=== PATIENT | male | born 1965 | race Caucasian/White ===

== ENCOUNTER 2018-04-21 18:36 | Inpatient (IN) | payer BC ==
[~2018-04-21] VITALS: Ht 175.3 cm; Wt 88.9 kg
--- NOTE | ~2018-04-21 | PROC ---
[address] [address] PROCEDURE REPORT Name: HE DUGGAN Room: [address] IN .R.#: [id number] Admission: 04/21/18 Attend Phys: Dominique Quezada Discharge: 04/24/18 Date of : 67 Report #: [id number] THIS REPORT FOR: //name// For GI report, please see the Provation report in Per[employer] 7 content. By: [id number] Records Staff PASTOR /TREY
[~2018-04-21 18:36] MED LIST: ANDRODERM IM; ANDRODERM1 EAC1; ANTIBIOTIC; BACTRIM; BUDESONIDE; COUMADIN 5 MG TA5 M1; DICLOXACILLIN250 M1 PO; ENTOCORT EC3 MG PO; FLEXERIL PO; IBUPROFEN 600600 M1 PO; OMEPRAZOLE20 MG PO; OMNICEF PO; PREDNISONE 20 M20 MG PO; PROTONIX40 MG PO; TESTOSTERONE IM; VICODIN 5-5001 EACH PO
[2018-04-21 18:57] VITALS: BP 155/107
[2018-04-21] MEDS ORDERED: GABAPENTIN 100100 MG PO (19:02)
[2018-04-21] MEDS ORDERED: LIPITOR 20 MG T20 M1 PO (19:03)
[2018-04-21] MEDS ORDERED: TESTONE CI200 MG/1 M IM (19:03)
[2018-04-21] MEDS ORDERED: ZOLOFT 50 MG TA50 MG PO (19:03)
[2018-04-21 19:46] LABS: HEMATOCRIT 58.3 % (42.0-52.0); HEMOGLOBIN 18.2 gm/dL (14.0-18.0); MCH 23.6 pg (26.0-34.0); MCHC 31.3 g/dL (28.0-37.0); MCV 75.6 fL (80.0-100.0); MPV 8.6 fl. (7.2-11.1); NUCLEATED RBCS 0 /100WBC; PLATELET COUNT* 232 thou/uL (150-400); RBC 7.71 mil/uL (4.50-6.00); RDW-CV 22.2 % (10.5-14.5); WBC 20.8 thou/uL (4.0-11.0)
[2018-04-21 19:54] LABS: CALCIUM 8.7 mg/dL (8.5-10.1); POTASSIUM 3.4 mmol/L (3.5-5.1)
[2018-04-21 19:58] LABS: ALBUMIN 3.5 g/dL (3.4-5.0); TOTAL BILIRUBIN 0.8 mg/dL (<0.1-1.0); TOTAL PROTEIN 7.3 g/dL (6.4-8.2)
[2018-04-21 20:54] LABS: ABSOLUTE EOSINOPHILS 0.8 thou/uL (0.0-0.7); ABSOLUTE LYMPHOCYTES 2.3 thou/uL (0.8-5.3); ABSOLUTE MONOCYTES 1.2 thou/uL (0.0-1.2); ABSOLUTE NEUTROPHILS 16.4 thou/uL (1.6-8.1)
[2018-04-21 20:55] LABS: ANISOCYTOSIS 2+
[2018-04-21 20:56] LABS: PLATELET ESTIMATE ADEQUATE
[2018-04-21 20:57] LABS: LARGE PLATELETS OCCASIONAL
[2018-04-21 21:00] LABS: OVALOCYTES Occasional
[2018-04-21 21:31] LABS: URINE BILIRUBIN NEGATIVE (Negative); URINE BLOOD NEGATIVE (Negative); URINE CLARITY CLEAR; URINE COLOR YELLOW; URINE GLUCOSE-RANDOM NEGATIVE (Negative); URINE KETONES NEGATIVE (Negative); URINE LEUKOCYTES-REFLEX NEGATIVE (Negative); URINE NITRITE-REFLEX NEGATIVE (Negative); URINE PROTEIN NEGATIVE (Negative); URINE UROBILINOGEN 0.2 E.U./dl (0.2-1.0)
[2018-04-21 21:41] LABS: AMP/METHAMP Negative (Negative); BARBITURATES Negative (Negative); BENZODIAZEPINES Negative (Negative); COCAINE Negative (Negative); METHADONE Negative (Negative); OPIATES POSITIVE (Negative); PCP Negative (Negative); THC POSITIVE (Negative)
[2018-04-22 01:29] VITALS: BP 135/95
[2018-04-22 01:35] VITALS: BP 139/96
--- NOTE | 2018-04-22 03:25 | NUR ---
PT ADMIT TO ROOM 210 AT 0135. ALERT, ORIENTED. UP AD SAV IN ROOM. IVF AT 100ML/HR. PT NPO FOR GI CONSULT IN AM. MED SURG STATUS. PT STATED PAIN 09/28. REFUSED PAIN MEDICATION OFFERED. RESTING QUIETLY.
[2018-04-22 05:25] LABS: HEMATOCRIT 53.7 % (42.0-52.0); HEMOGLOBIN 16.6 gm/dL (14.0-18.0); MCH 23.6 pg (26.0-34.0); MCV 76.2 fL (80.0-100.0); MPV 9.2 fl. (7.2-11.1); RBC 7.05 mil/uL (4.50-6.00); RDW-CV 22.1 % (10.5-14.5); WBC 14.9 thou/uL (4.0-11.0)
[2018-04-22 05:43] LABS: ALBUMIN 3.1 g/dL (3.4-5.0); CALCIUM 8.2 mg/dL (8.5-10.1); CREATININE 0.9 mg/dL (0.6-1.3); POTASSIUM 4.3 mmol/L (3.5-5.1); TOTAL BILIRUBIN 0.7 mg/dL (<0.1-1.0); TOTAL PROTEIN 6.5 g/dL (6.4-8.2)
[2018-04-22] MEDS ORDERED: LOMOTIL 2.5-0.01 TAB PO (07:23)
[2018-04-22] MEDS ORDERED: IBUPROFEN 400400 M2 PO (07:24)
--- NOTE | 2018-04-22 08:15 | NUR ---
RECEIVED REPORT. ASSUMED CARE OF PT AT 0730. VSS. MED-SURG STATUS. IVF INFUSING PER ORDERS. PT ON RA. PT REPORTS IMPROVEMENT IN DIARRHEA/ABDOMINAL PAIN. PT DOES REPORT INCREASED PAIN TO NECK. PT REQUESTING TYLENOL, COFEE, AND ICE PACK FOR NECK. GIVEN WITH SOME RELIEF. PT IS UP AD SAV. PT HAD SMALL FORMED BM THIS AM. PT TAKEN OFF ISOLATION. PT INFORMED OF PLAN OF CARE. CALL LIGHT IS WITHIN REACH. WILL CONTINUE TO MONITOR FOR DURATION OF SHIFT.
[2018-04-22 08:23] VITALS: BP 141/93
--- NOTE | 2018-04-22 10:41 | NUR ---
Pt out of the room when CM went to assess, will f/u later
--- NOTE | 2018-04-22 13:50 | NUR ---
Pt is A&O. Resides at home with his . Independent with ADLs, continues to work outside of the home. No DME. No hx of HH or SNF. Goal is home at pa. GI following.
[2018-04-22 16:00] VITALS: BP 125/84
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
[2018-04-22 20:00] VITALS: BP 151/87
[2018-04-23] VITALS: BP 147/92
[2018-04-23 04:00] VITALS: BP 133/90
[2018-04-23 05:05] LABS: ALBUMIN 2.9 g/dL (3.4-5.0); CALCIUM 7.6 mg/dL (8.5-10.1); CREATININE 0.9 mg/dL (0.6-1.3); MAGNESIUM 2.1 mg/dL (1.8-2.4); POTASSIUM 3.9 mmol/L (3.5-5.1); TOTAL BILIRUBIN 0.5 mg/dL (<0.1-1.0); TOTAL PROTEIN 5.7 g/dL (6.4-8.2)
[2018-04-23 05:08] LABS: HEMATOCRIT 47.9 % (42.0-52.0); MCH 23.8 pg (26.0-34.0); MCHC 31.4 g/dL (28.0-37.0); MPV 9.2 fl. (7.2-11.1); RBC 6.3 mil/uL (4.50-6.00); RDW-CV 21.8 % (10.5-14.5); WBC 16.4 thou/uL (4.0-11.0)
--- NOTE | 2018-04-23 07:16 | NUR ---
PATIENT PROGRESSING TOWARDS GOALS: PAIN MANAGED WITH PO MEDICATION PER MAR. PATIENT HAD NO DIARRHEA THIS SHIFT, THERFORE STOOL FOR CDIFF HAS NOT BEEN COLLECTED. PATIENT AMBULATING INDEPENDENTLY WITH NO DIFFICULTY. PATIENT REMAINS ON ROOM AIR. HOURLY ROUNDING OBSERVED. CALL LIGHT WITHIN REACH.
[2018-04-23 08:00] VITALS: BP 135/92
[2018-04-23 15:35] VITALS: BP 156/101
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
[2018-04-23 20:00] VITALS: BP 162/95
[2018-04-24] VITALS: BP 148/98
[2018-04-24 04:04] VITALS: BP 130/91
--- NOTE | 2018-04-24 05:39 | NUR ---
ASSUMED PT CARE AT 1930. ASSESSMENT COMPLETED CHARTED. ABLE TO MAKE NEEDS KNOWN. UP AD SAV, FLUIDS INFUSING PER P.O, C/O PAIN IN BACK AND NECK OF 3 AT THIS TIME. PT RESTING IN BED AT THIS TIME. NPO AT MIDNIGHT FOR FLEX SIGMOIDOSTOMY. WILL CONTINUE TO MONITOR.
[2018-04-24 08:00] VITALS: BP 135/99
--- NOTE | 2018-04-24 11:08 | NUR ---
ASSUMED PT CARE AT 0700 PT IS ALERT AND ORIENTED X 4 PT STATES SLIGHT PAIN AND DISCOMFORT PT DENIES SOA ON RA, PT IS NPO FOR FLEX SIGMOID PT HAS NOT HAD BOWEL MOVEMENT GAVE ENEMAS X 2 TO CLEAN OUT COLON, PT IS MEDICAL SURGICAL STATUS, PT IS UP AD SAV PT IS NOT A FALL RISK, WILL CONTINUE TO MONITOR
[2018-04-24 11:18] VITALS: BP 130/91
[2018-04-24 13:41] VITALS: BP 130/91
--- NOTE | 2018-04-27 12:05 | PATH ---
[address] [address] PATHOLOGY RPT PROCEDURE Name: URBANHE VENTURA Room: [address] IN M.R.#: [id number] Admission: 04/21/18 Date of : 67 Discharge: 04/24/18 Report #: [id number] Path Case #: [id number] [facility] Accession Number: [id number] . 01 Material submitted: . DESCENDING AND SIGMOID BIOPSY . 01 Clinical history: . None provided . 02 Diagnosis: Descending and sigmoid biopsy: - Benign colonic mucosa including several fragments suggesting hyperplastic changes, negative for cryptitis, granulomas, and dysplasia. . (NILAY:vjm;04/26/2018) AGA/04/26/2018 . 02 Electronically signed: . Edinson Mcwilliams MD, Pathologist NPI- [id number] . 01 Gross description: . The specimen is received in formalin, labeled "Urban, He, descending and sigmoid biopsy" and consists of multiple fragments of soft aj-brown tissue measuring 1.2 x 0.5 x 0.2 cm in aggregate which is entirely submitted in A1. (SDY; 04/25/2018) SYU/SYU . 02 Pathologist provided ICD-10: R19.7 . 02 CPT . 281218 Specimen Comment: A courtesy copy of this report has been sent to Specimen Comment: [phone], , . Specimen Comment: Report sent to ,DR BRIGHT / DR BERNAL Specimen Comment: A duplicate report has been generated due to demographic updates. Performed at: [address] [facility], [place], [place] [id number] MD Quincy Molina MD Phone: [phone] Performed at: [address] [facility] [address] [place], [place] [id number] MD Edinson Mcwilliams MD Phone: [phone]
--- NOTE | 2018-04-27 12:52 | CON ---
[address] [address] CONSULTATION Name: URBANHE AUDREY Room: [address] IN M.R.#: [id number] Admission: 04/21/18 Attend Phys: Dominique Quezada Discharge: 04/24/18 Date of : 67 Report #: [id number] THIS REPORT FOR: //name// CC: Lukas Espinal DATE OF SERVICE: 04/22/2018 HISTORY OF PRESENT ILLNESS: The patient is a pleasant 52-year-old gentleman with past medical history of ulcerative colitis, who is presenting with abdominal pain. The patient was seen on 04/22/2018 and this consult note reflects that date of service. The patient reports that he was diagnosed with ulcerative colitis several years back and has been on prednisone therapy since then. It appears that the patient resisted escalation of therapy to biologic therapy. He reports that he had a colonoscopy about a few weeks back with Dr. Shea and this was relatively unremarkable, and the patient was placed on a taper of steroids. He presented with several days of gradually worsening nausea, vomiting, hematochezia and rectal pain. The patient reports that it has been difficult for him to take p.o. due to the abdominal pain. He also reports in order to reduce his stool output he began reducing his p.o. intake including fluids. The patient reports that he has been diagnosed with osteoporosis recently and has lumbar pain. The patient also appears to have had prior history of hemorrhoid banding done. PAST SURGICAL HISTORY: The patient had reconstructive facial surgery in 1988, right shoulder surgery in 2005, back surgery for slipped disk in 2007, right hip 3 screws placed, neck fusion surgery. PAST MEDICAL HISTORY: As mentioned above, the patient has history of ulcerative colitis. SOCIAL HISTORY: The patient smokes marijuana intermittently, quit smoking last year. Denies any alcohol use. FAMILY HISTORY: There is no family history of inflammatory bowel disease. REVIEW OF SYSTEMS: A comprehensive 10-point review of systems is negative except for what is mentioned above. PHYSICAL EXAMINATION: VITAL SIGNS: Temperature is 36.7, pulse rate 104, respirations 16, blood pressure 124/84. GENERAL: The patient is alert, awake, oriented x 3. HEENT: Pupils are equal, round, reactive [place] [address] CONSULTATION Name: URBANHERANDAL VENTURA Room: [address]#: [id number] Admission: 04/21/18 Attend Phys: Dominique Quezada Discharge: 04/24/18 Date of : 67 Report #: [id number] membranes are moist. There is no congestion. LUNGS: Clear to auscultation bilaterally. CARDIOVASCULAR: Rate and rhythm regular. S1, S2 present. ABDOMEN: Soft. There is no distention, no guarding or rigidity. EXTREMITIES: Warm, well perfused. There is no edema. LABORATORY DATA: Hemoglobin 18.2, hematocrit 58.3, platelet count 232, WBC count 20.8. Sodium 138, potassium 3.4, chloride 104, bicarbonate 24, BUN 17, creatinine 1, AST 22, ALT 41, alkaline phosphatase 41. Abdomen CT demonstrates fluid extends throughout the colon without finding of focal obstruction, inflammatory change or wall thickening. Mild distention of stomach secondary to recent meal. ASSESSMENT AND PLAN: This is a pleasant 52-year-old male with past medical history significant for ulcerative colitis. The patient appears to have resisted taking biologic therapy for long, but now has osteoporosis and would like to reconsider taking biologic therapy. I have sent off stool studies for Clostridium difficile and if this is negative, we will proceed with flex sig and biopsies for evaluation of active inflammatory bowel disease. <ELECTRONICALLY SIGNED> By: Sylvester Shaw MD 04/27/18 1252 1453 [id number] Shaw MD /nt
== END 2018-04-24 14:33 | disposition home or self-care (01) | DRG 392 ==
LOC: M.ERS 18:36 → M.TBA-ER 22:25 → M.2W 22:25
PROVIDERS: Emergency Medicine; Internal Medicine; ADMIT Internal Medicine
PROC: 0DBM8ZX Excision of Descending Colon, Via Natural or Artificial Opening Endoscopic, Diagnostic (ICD-10-PCS; principal; 2018-04-24)
PROC: 0DBP8ZX Excision of Rectum, Via Natural or Artificial Opening Endoscopic, Diagnostic (ICD-10-PCS; principal; 2018-04-24)
PROC: 0DBN8ZX Excision of Sigmoid Colon, Via Natural or Artificial Opening Endoscopic, Diagnostic (ICD-10-PCS; principal; 2018-04-24)
DX: K52.9 Noninfective gastroenteritis and colitis, unspecified (principal); K51.90 Ulcerative colitis, unspecified, without complications; E86.0 Dehydration; K64.9 Unspecified hemorrhoids; K21.9 Gastro-esophageal reflux disease without esophagitis; G89.29 Other chronic pain; M54.2 Cervicalgia; M54.9 Dorsalgia, unspecified; K64.4 Residual hemorrhoidal skin tags; E86.9 Volume depletion, unspecified; Z87.891 Personal history of nicotine dependence; Z28.21 Immunization not carried out because of patient refusal

== ENCOUNTER 2018-06-08 12:06 | Emergency (ER) | payer BC ==
[~2018-06-08] VITALS: Ht 175.3 cm; Wt 89.8 kg
[~2018-06-08 12:06] MED LIST changes: +GABAPENTIN 100100 MG PO; +IBUPROFEN 400400 M2 PO; +LIPITOR 20 MG T20 M1 PO; +LOMOTIL 2.5-0.01 TAB PO; +TESTONE CI200 MG/1 M IM; +ZOLOFT 50 MG TA50 MG PO
[2018-06-08] MEDS ORDERED: HUMIRA10 MG/0.1 SUBLING (12:16)
[2018-06-08 12:42] LABS: MCH 25.2 pg (26.0-34.0); MCHC 31.5 g/dL (28.0-37.0); MCV 80.2 fL (80.0-100.0); MPV 8.8 fl. (7.2-11.1); NUCLEATED RBCS 0 /100WBC; PLATELET COUNT* 197 thou/uL (150-400); RBC 6.74 mil/uL (4.50-6.00); RDW-CV 19.1 % (10.5-14.5); WBC 16.5 thou/uL (4.0-11.0)
[2018-06-08 12:47] LABS: ANION GAP 8 mmol/L (7-16); BUN 12 mg/dL (7-18); CALCIUM 8.4 mg/dL (8.5-10.1); CHLORIDE 103 mmol/L (98-107); CO2 29 mmol/L (21-32); CREATININE 1.1 mg/dL (0.6-1.3); GLUCOSE 107 mg/dL (70-99); POTASSIUM 3.9 mmol/L (3.5-5.1); SODIUM 140 mmol/L (136-145)
[2018-06-08 12:53] LABS: ALBUMIN 3.3 g/dL (3.4-5.0); ALKALINE PHOSPHATASE 42 U/L (46-116); SGOT 20 U/L (15-37); SGPT 45 U/L (30-65); TOTAL BILIRUBIN 0.6 mg/dL (<0.1-1.0); TOTAL PROTEIN 6.7 g/dL (6.4-8.2); TROPONIN-I LEVEL <0.06 ng/mL (<0.06)
[2018-06-08 12:56] LABS: INR 1.1; PROTIME 11.4 Seconds (9.20-11.50)
[2018-06-08 13:29] LABS: ABSOLUTE LYMPHOCYTES 0.5 thou/uL (0.8-5.3); ABSOLUTE MONOCYTES 0.7 thou/uL (0.0-1.2); ABSOLUTE NEUTROPHILS 15.3 thou/uL (1.6-8.1); PLATELET ESTIMATE ADEQUATE
[2018-06-08] MEDS ORDERED: NORCO 5-325 TA1 EACH PO (15:03)
[2018-06-08] MEDS ORDERED: LISINOPRIL10 MG PO (15:03)
[2018-06-08 15:16] VITALS: BP 137/100
--- NOTE | 2018-06-08 18:09 | EKG ---
[place] [address] ELECTROCARDIOGRAM REPORT Name: URBANHERANDAL VENTURA Room: [facility]#: [id number] Admission: 06/08/18 Attend Phys: Discharge: 06/08/18 Date of : 67 Report #: [id number] THIS REPORT FOR: //name// [facility] ED Test Date: 2018-06-08 Test Time: 12:12:24 Pat Name: HE DUGGAN Department: Room: Gender: M Nutrition Internship: : 1965 Requested By: Carmina Osorio Order Number: [id number] MD: [place] Tobar Measurements Intervals [place] Rate: 87 P: 56 [place]: 154 QRS: -7 QRSD: 92 T: 18 QT: 348 QTc: 419 Interpretive Statements Sinus rhythm Probable left atrial enlargement Anteroseptal infarct, old, possible Compared to ECG 04/06/2010 17:01:23 Myocardial infarct finding now present Sinus arrhythmia no longer present T-wave abnormality no longer present Electronically Signed On 06-08-2018 18:09:45 YACHT HAND by [place] Tobar [email or web address] <ELECTRONICALLY SIGNED> By: [place] Tobar MD, FACC 06/08/18 1809 1212 121 [place] Tobar MD, FACC /EPI
== END 2018-06-08 15:18 | disposition home or self-care (01) ==
LOC: M.ERS 12:06
PROVIDERS: Nurse Practitioner Family
DX: I10 Essential (primary) hypertension (principal); R07.89 Other chest pain; M54.2 Cervicalgia; G89.29 Other chronic pain; Z87.891 Personal history of nicotine dependence

== ENCOUNTER 2018-06-17 13:23 | Emergency (ER) | payer BC ==
[~2018-06-17] VITALS: Ht 175.3 cm; Wt 90.7 kg
[~2018-06-17 13:23] MED LIST changes: +HUMIRA10 MG/0.1 SUBLING; +LISINOPRIL10 MG PO; +NORCO 5-325 TA1 EACH PO
[2018-06-17] MEDS ORDERED: CEPHALEXIN500 MG PO (13:42)
[2018-06-17 14:22] LABS: HEMATOCRIT 53.6 % (42.0-52.0); HEMOGLOBIN 17.3 gm/dL (14.0-18.0); MCH 26.2 pg (26.0-34.0); MCHC 32.3 g/dL (28.0-37.0); MCV 81.2 fL (80.0-100.0); MPV 8.5 fl. (7.2-11.1); NUCLEATED RBCS 0 /100WBC; PLATELET COUNT* 223 thou/uL (150-400); RBC 6.61 mil/uL (4.50-6.00); RDW-CV 18.9 % (10.5-14.5); WBC 20.8 thou/uL (4.0-11.0)
[2018-06-17 14:30] LABS: CALCIUM 8.7 mg/dL (8.5-10.1); POTASSIUM 3.7 mmol/L (3.5-5.1)
[2018-06-17 14:35] LABS: ALBUMIN 3.4 g/dL (3.4-5.0); TOTAL BILIRUBIN 0.8 mg/dL (<0.1-1.0); TOTAL PROTEIN 6.6 g/dL (6.4-8.2)
[2018-06-17 14:48] LABS: ABSOLUTE MONOCYTES 1.2 thou/uL (0.0-1.2); ABSOLUTE NEUTROPHILS 18.5 thou/uL (1.6-8.1); PLATELET ESTIMATE ADEQUATE
[2018-06-17 15:40] LABS: URINE BILIRUBIN NEGATIVE (Negative); URINE BLOOD NEGATIVE (Negative); URINE CLARITY CLEAR; URINE COLOR YELLOW; URINE GLUCOSE-RANDOM NEGATIVE (Negative); URINE KETONES NEGATIVE (Negative); URINE LEUKOCYTES-REFLEX NEGATIVE (Negative); URINE NITRITE-REFLEX NEGATIVE (Negative); URINE PROTEIN NEGATIVE (Negative); URINE UROBILINOGEN 0.2 E.U./dl (0.2-1.0)
[2018-06-17 15:48] LABS: AMP/METHAMP Negative (Negative); BARBITURATES Negative (Negative); BENZODIAZEPINES Negative (Negative); COCAINE Negative (Negative); METHADONE Negative (Negative); OPIATES Negative (Negative); PCP Negative (Negative); THC POSITIVE (Negative)
[2018-06-17] MEDS ORDERED: AUGMENTIN 875-1 EACH PO (16:04)
[2018-06-17 16:46] VITALS: BP 140/96
--- NOTE | 2018-06-19 11:04 | EKG ---
[place] [address] ELECTROCARDIOGRAM REPORT Name: HE DUGGAN [id number] Admission: 06/17/18 Attend Phys: Discharge: 06/17/18 Date of : 67 Report #: [id number] THIS REPORT FOR: //name// [facility] ED Test Date: 2018-06-17 Test Time: 14:08:32 Pat Name: HE DUGGAN Department: Room: Gender: M Weatherization Operations Manager: Sarbjit RAMIREZ : 1965 Requested By: Kelly Coates Order Number: [id number] MD: Antonio Ashraf Measurements Intervals [place] Rate: 116 P: 43 [place]: 152 QRS: -14 QRSD: 90 T: -3 QT: 339 QTc: 471 Interpretive Statements Sinus tachycardia Left atrial enlargement Low voltage, precordial leads Anteroseptal infarct, old possible Borderline T abnormalities, inferior leads Compared to ECG 06/08/2018 12:12:24 Low QRS voltage now present T-wave abnormality now present Sinus rate has increased Myocardial infarct finding still suggested Electronically Signed On 06-19-2018 11:04:03 DATA COMMUNICATIONS TECHNICIAN by Antonio Ashraf [email or web address] <ELECTRONICALLY SIGNED> By: Antonio Ashraf MD, FACC 06/19/18 1104 1408 1408 Antonio Ashraf MD, FAC /EPI
== END 2018-06-17 16:48 | disposition home or self-care (01) ==
LOC: M.ERS 13:23
PROVIDERS: Physician Assistant
DX: R07.89 Other chest pain (principal); Z87.891 Personal history of nicotine dependence

== ENCOUNTER 2018-07-19 17:07 | Inpatient (IN) | payer BC ==
[~2018-07-19] VITALS: Ht 175.3 cm; Wt 86.2 kg
--- NOTE | ~2018-07-19 | CON ---
[address] [address] CONSULTATION Name: URBANHE VENTURA Room: [address]#: [id number] Admission: 07/19/18 Attend Phys: Elaine Taylor MD Discharge: 07/21/18 Date of : 67 Report #: [id number] THIS REPORT FOR: //name// CC: Lukas Taylor HISTORY OF PRESENT ILLNESS: This is a pleasant 52-year-old gentleman with left-sided ulcerative colitis diagnosed recently in April who is presenting for evaluation of abdominal pain and diarrhea. The patient was initially diagnosed in April when he presented with diarrhea and hematochezia. At that time, endoscopy performed demonstrated left-sided ulcerative colitis. The patient was subsequently placed on Humira and he was noted to have some improvement in his symptoms. The patient also currently is on prednisone 15 mg p.o. daily. PAST MEDICAL HISTORY: Significant for hypertension. PAST SURGICAL HISTORY: Nonsignificant in the abdomen. The patient had reconstructive facial surgery in 1988, right shoulder surgery in 2005, right hand surgery, right hip surgery and neck fusion surgery. FAMILY HISTORY: There is no family history of colorectal cancer or inflammatory bowel disease. SOCIAL HISTORY: The patient reports current marijuana and THC use. REVIEW OF SYSTEMS: A comprehensive 10-point review of systems is negative except for what is mentioned in the HPI. PHYSICAL EXAMINATION: VITAL SIGNS: Temperature 36.5, pulse rate 76, and blood pressure 138/80, respirations 16. GENERAL: The patient is alert, awake, oriented x 3. HEENT: Pupils are equal, round, reactive to light and accommodation. Mucous membranes are moist. NECK: There is no congestion. LUNGS: Clear to auscultation bilaterally. CARDIOVASCULAR: Rate and rhythm regular. S1, S2 present. ABDOMEN: Soft, it is mildly tender in the suprapubic and left lower quadrant, otherwise no guarding or rigidity. EXTREMITIES: Warm, well perfused. There is no edema. LABORATORY DATA: WBC count 22.2, hemoglobin 17.2, hematocrit 53.3, platelet count 194. Sodium 139, potassium 3.6, bicarbonate 28, chloride 102, BUN 14, creatinine 1. CRP 27.6. Imaging demonstrates mural thickening of the transverse and descending colon, [place] [address] CONSULTATION Name: HE DUGGAN Room: [address]#: [id number] Admission: 07/19/18 Attend Phys: Elaine Taylor MD Discharge: 07/21/18 Date of : 67 Report #: [id number] mild colitis could be possible. ASSESSMENT AND PLAN: Pleasant 52-year-old gentleman with recently diagnosed history of left-sided ulcerative colitis presenting with worsening of symptoms. The patient currently on Humira as well as 15 mg of prednisone. I will test the patient for C. diff and if this is negative, we will proceed with endoscopic evaluation to determine the extent of the disease. If the C. diff is negative, I plan on placing the patient on 40 mg of prednisone. I did offer the patient the option of increasing the dose of Humira as outpatient, but he declined to have it done at this time. Thank you for this consult. By: 1803 0056Sylvester Shaw MD /nt
[~2018-07-19 17:07] MED LIST changes: +AUGMENTIN 875-1 EACH PO; +CEPHALEXIN500 MG PO
[2018-07-19 17:23] VITALS: BP 148/108
[2018-07-19] MEDS ORDERED: IRBESARTAN150 MG PO (17:31)
[2018-07-19] MEDS ORDERED: COREG6.25 MG PO (17:31)
[2018-07-19] MEDS ORDERED: OMEPRAZOLE40 MG PO (17:33)
[2018-07-19 18:00] LABS: HEMATOCRIT 53.3 % (42.0-52.0); HEMOGLOBIN 17.2 gm/dL (14.0-18.0); MCH 26.7 pg (26.0-34.0); MCHC 32.3 g/dL (28.0-37.0); MCV 82.6 fL (80.0-100.0); MPV 8.2 fl. (7.2-11.1); NUCLEATED RBCS 0 /100WBC; PLATELET COUNT* 194 thou/uL (150-400); RBC 6.45 mil/uL (4.50-6.00); RDW-CV 18.9 % (10.5-14.5); WBC 22.2 thou/uL (4.0-11.0)
[2018-07-19 18:08] LABS: CALCIUM 8.7 mg/dL (8.5-10.1); POTASSIUM 3.6 mmol/L (3.5-5.1)
[2018-07-19 18:12] LABS: ALBUMIN 2.6 g/dL (3.4-5.0); TOTAL BILIRUBIN 0.3 mg/dL (<0.1-1.0); TOTAL PROTEIN 6.4 g/dL (6.4-8.2)
[2018-07-19 18:42] LABS: ABSOLUTE MONOCYTES 0.9 thou/uL (0.0-1.2); ABSOLUTE NEUTROPHILS 19.3 thou/uL (1.6-8.1)
[2018-07-19 18:43] LABS: PLATELET ESTIMATE ADEQUATE
[2018-07-19 18:51] LABS: URINE BILIRUBIN NEGATIVE (Negative); URINE BLOOD NEGATIVE (Negative); URINE CLARITY CLEAR; URINE COLOR YELLOW; URINE GLUCOSE-RANDOM NEGATIVE (Negative); URINE KETONES NEGATIVE (Negative); URINE LEUKOCYTES-REFLEX NEGATIVE (Negative); URINE NITRITE-REFLEX NEGATIVE (Negative); URINE PROTEIN NEGATIVE (Negative); URINE UROBILINOGEN 0.2 E.U./dl (0.2-1.0)
[2018-07-19 18:56] LABS: APTT 25.3 Seconds (25.0-31.3); INR 1.2; PROTIME 11.9 Seconds (9.20-11.50)
[2018-07-19 22:00] VITALS: BP 136/103; BP 144/99
--- NOTE | 2018-07-20 04:59 | NUR ---
PT ARRIVED ON UNIT AT 2200 VIA W/C PT ASSISSTED TO ROOM ORIENTED SURROUNDINGS. PT HAD PAIN AND NAUSEA MEDS THEN SLEPT THROUGH THE NIGHT. WILL CONTINUE PLAN OF CARE.
[2018-07-20 09:18] VITALS: BP 139/89
[2018-07-20 09:24] VITALS: BP 139/89
[2018-07-20 11:02] LABS: AMP/METHAMP Negative (Negative); BARBITURATES Negative (Negative); BENZODIAZEPINES Negative (Negative); COCAINE Negative (Negative); METHADONE Negative (Negative); OPIATES Negative (Negative); PCP Negative (Negative); THC POSITIVE (Negative)
[2018-07-20 15:44] VITALS: BP 138/80
--- NOTE | 2018-07-20 18:12 | NUR ---
PT REMAINED ALERT AND ORIENTED. PT WAS ANGRY THIS MORNING DUE TO NPO STATUS AND CONFUSION ON CARE. DOCTOR NOTIFIED AND TALKED WITH PT. PT HAD NEW IV STARTED IN RT HAND. OLD IV CAME OUT ACCIDENTALLY. FALL RISK PRECAUTIONS IN PLACE. HOURLY ROUNDING COMPLETED. WILL CONTINUE TO MONITOR.
[2018-07-20 20:00] VITALS: BP 138/94
[2018-07-21 04:07] LABS: ABSOLUTE LYMPHOCYTES 1.8 thou/uL (0.8-5.3); ABSOLUTE MONOCYTES 1.4 thou/uL (0.0-1.2); ABSOLUTE NEUTROPHILS 16.3 thou/uL (1.6-8.1); BASOPHILS 0.2 %; EOSINOPHILS 0.1 %; HEMATOCRIT 50.5 % (42.0-52.0); HEMOGLOBIN 16.1 gm/dL (14.0-18.0); LYMPHOCYTES 9.1 %; MCH 26.3 pg (26.0-34.0); MCHC 31.8 g/dL (28.0-37.0); MCV 82.8 fL (80.0-100.0); MONOCYTES 7.1 %; MPV 8.4 fl. (7.2-11.1); NUCLEATED RBCS 0 /100WBC; PLATELET COUNT* 199 thou/uL (150-400); POLYS 83.5 %; RDW-CV 18.5 % (10.5-14.5); WBC 19.6 thou/uL (4.0-11.0)
[2018-07-21 04:22] LABS: CALCIUM 8.2 mg/dL (8.5-10.1); CREATININE 0.9 mg/dL (0.6-1.3); POTASSIUM 3.8 mmol/L (3.5-5.1)
--- NOTE | 2018-07-21 04:52 | NUR ---
PT REMAINED A&Ox4 THROUGHOUT SHIFT. UP AD SAV IN ROOM. VITALS STABLE. PAIN CONTROLLED WITH MORPHINE. NAUSEA CONTROLLED WITH ZOFRAN. IV IN R HAND PATENT, INFUSING. 24 HOUR URINE COLLECTION UNTIL 07/22 @ 1600, URINE ON ICE IN ROOM. HAT IN TOLILET FOR STOOL SAMPLE, NOT RECIEVED. PT ON CONTACT PRECAUTIONS FOR POSSIBLE CDIFF. HOURLY ROUNDING COMPLETE. CALL LIGHT WITHIN REACH. WILL CONTINUE TO MONITOR.
[2018-07-21 08:45] VITALS: BP 153/89
--- NOTE | 2018-07-21 10:56 | NUR ---
PATIENT LEFT AGAINST MEDICAL ADVISE AT 1045. ALERT AND ORIENTED X4. IV DC'D. PATIENT WAS VERY UPSET THIS AM DUE TO THE FACT THAT HE WAS TOLD YESTERDAY EVENING THAT HE WAS GOING TO BE GETTING A COLONOSCOPY THIS MORNING. NO ORDERS WERE PUT IN AND HE RECIEVED BREAKFAST. RN SPOKE WITH GI PHYSICIAN HE STATED HE WOULD BE BY AROUND 1300 TO SPEAK WITH PATIENT AND DECIDE PLAN OF CARE. PATIENT WAS NOT HAPPY WITH THIS RESPONSE AND FELT IF THAT SHOULD HAVE BEEN DECIDED WHEN HE WAS SEEN YESTERDAY. DR. PARISI HAS BEEN NOTIFIED. PATIENT WAS EDUCATED ON RISKS AND PATIENT STATED HE WOULD FOLLOW UP WITH DR. NANY COCHRAN.
--- NOTE | 2018-07-21 23:57 | NUR ---
Informed by lab that Mr Kim had a positive C-Diff culture come back after he left AMA this morning. Contacted Dr Torres who instructed that patient needed to be notified to continue taking his Flagyl, but stop taking Cipro. He also suggested calling his GI doctor in the morning to get a follow up appt bridget. Attempted to call Mr Kim but was unable to reach him. Left a message on his machine to follow up with bridget. Will pass instructions on to day mill labor supervisor to have patient recalled in AM and given instructions.
== END 2018-07-21 10:45 | disposition left against medical advice (07) | DRG 386 ==
LOC: M.ERS 17:07 → M.ORTHSURG 20:34 → M.TBA-ER 20:34 → M.ORTHSURG 21:50
PROVIDERS: Internal Medicine; Physician Assistant; ADMIT Internal Medicine
DX: K51.90 Ulcerative colitis, unspecified, without complications (principal); K62.5 Hemorrhage of anus and rectum; R65.10 Systemic inflammatory response syndrome (SIRS) of non-infectious origin without acute organ dysfunction; I10 Essential (primary) hypertension; E86.0 Dehydration; G89.29 Other chronic pain; G43.A0 Cyclical vomiting, in migraine, not intractable; Z53.21 Procedure and treatment not carried out due to patient leaving prior to being seen by health care provider; T38.0X5A Adverse effect of glucocorticoids and synthetic analogues, initial encounter; Z87.891 Personal history of nicotine dependence; Z79.899 Other long term (current) drug therapy; Z28.21 Immunization not carried out because of patient refusal